=== PATIENT | female | born 1970 | race Caucasian/White ===

== ENCOUNTER → 2018-11-27 | Outpatient (CLI) | payer BC ==
[2006-03-31 21:00] VITALS: TEMP 98.1
== END ==
LOC: MC.RAD 08:43
DX: Z12.31 Encounter for screening mammogram for malignant neoplasm of breast (principal)

== ENCOUNTER → 2020-11-27 | Outpatient (CLI) | payer BC ==
[2006-03-31 21:00] VITALS: TEMP 98.1
== END ==
LOC: MC.RAD 13:55
DX: Z12.31 Encounter for screening mammogram for malignant neoplasm of breast (principal); N64.89 Other specified disorders of breast

== ENCOUNTER → 2020-12-03 | Outpatient (CLI) | payer BC ==
[2006-03-31 21:00] VITALS: TEMP 98.1
== END ==
LOC: COL.RAD 12:38
DX: E04.2 Nontoxic multinodular goiter (principal)

== ENCOUNTER → 2020-12-05 | Outpatient (CLI) | payer BC ==
[2006-03-31 21:00] VITALS: TEMP 98.1
== END ==
LOC: MC.RAD 13:26
DX: N63.10 Unspecified lump in the right breast, unspecified quadrant (principal); N64.89 Other specified disorders of breast

== ENCOUNTER → 2020-12-10 | Outpatient (CLI) | payer BC ==
[2006-03-31 21:00] VITALS: TEMP 98.1
== END ==
LOC: MC.RAD 08:15
DX: N64.89 Other specified disorders of breast (principal); N62 Hypertrophy of breast

== ENCOUNTER → 2022-11-23 | Outpatient (CLI) | payer BC ==
[2006-03-31 21:00] VITALS: TEMP 98.1
== END ==
LOC: MC.RAD 13:46
DX: Z12.31 Encounter for screening mammogram for malignant neoplasm of breast (principal)